=== PATIENT | male | born 1965 | race Caucasian/White ===

== ENCOUNTER 2018-04-01 05:47 | Inpatient (IN) | payer OTHER ==
[~2018-04-01] VITALS: Ht 177.8 cm; Wt 168.6 kg
[~2018-04-01 05:47] MED LIST: ASPI81EC PO; ATEN50 PO; ATOR80 PO; Byetta5 MCG/0.02 SQ; DOXY100T53 PO; EZET10 PO; LISI5 PO; METF500C PO; NIAC500ER PO; ONDA4ODT MM
[2018-04-01] MEDS ORDERED: CITA20 PO (06:00)
[2018-04-01] MEDS ORDERED: ATOR80 PO (06:00)
[2018-04-01] MEDS ORDERED: HYDHCL25 PO (06:00)
[2018-04-01] MEDS ORDERED: METF500C PO (06:01)
[2018-04-01] MEDS ORDERED: CHOL10002 PO (06:01)
[2018-04-01] MEDS ORDERED: GLIP5ER PO (06:01)
[2018-04-01] MEDS ORDERED: CARV3.125 PO (06:01)
[2018-04-01] MEDS ORDERED: GABA100 PO (06:01)
[2018-04-01 06:02] LABS: BASOPHILS PERCENT AUTO 1 % (0-2); EOSINOPHILS ABSOLUTE AUTO 0.22 K/mm3 (0.00-0.68); EOSINOPHILS PERCENT AUTO 3 % (0-6); Hematocrit 45.4 % (37.0-53.0); IMMATURE GRAN ABSOLUTE AUTO 0.04 K/mm3 (0.00-0.10); IMMATURE GRAN PERCENT AUTO 1 % (0-1); LYMPHOCYTES ABSOLUTE AUTO 2.45 K/mm3 (0.84-5.20); LYMPHOCYTES PERCENT AUTO 29 % (21-46); MONOCYTES ABSOLUTE AUTO 0.69 K/mm3 (0.16-1.47); MONOCYTES PERCENT AUTO 8 % (4-13); Mean Corpuscular HGB 29.2 pg (26.0-34.0); Mean Corpuscular Volume 88 fL (80-100); Mean Platelet Volume 11.2 fL (9.1-12.4); NEUTROPHILS ABSOLUTE AUTO 5.07 K/mm3 (1.96-9.15); NEUTROPHILS PERCENT AUTO 59 % (41-73); Platelet Count 245 K/mm3 (150-400); RDW Coefficient Variation 12.6 % (11.7-14.2); RDW Standard Deviation 40.2 fL (35.1-46.3); Red Blood Cell Count 5.14 M/mm3 (4.30-5.90); White Blood Cell Count 8.57 K/mm3 (4.00-11.30)
[2018-04-01] MEDS ORDERED: Amitriptyline H25 MG PO (06:02)
[2018-04-01] MEDS ORDERED: ALL DAY ALLERGY10 M1 PO (06:02)
[2018-04-01] MEDS ORDERED: Zestril30 MG PO (06:02)
[2018-04-01] MEDS ORDERED: LEVSOD100 PO (06:03)
[2018-04-01] MEDS ORDERED: LANS15EC PO (06:03)
[2018-04-01 06:25] LABS: Alanine Aminotransfer (ALT/SGP 80 U/L (12-78); Albumin, Blood 2.7 g/dL (3.4-5.0); Albumin/Globulin Ratio 0.7 (0.8-1.8); Alk Phos 117 U/L (50-136); Anion Gap 10 mmol/L (6-16); Aspartate Aminotrans (AST/SGOT 56 U/L (12-37); Bilirubin, Total 0.5 mg/dL (0.1-1.0); Blood Urea Nitrogen 14 mg/dL (8-24); Bun/Creatinine Ratio 19.3 (12.0-20.0); CO2, Blood 24 mmol/L (21-32); Calcium, Blood 8.5 mg/dL (8.5-10.1); Chloride, Blood 107 mmol/L (98-108); Creatinine, Blood 0.73 mg/dL (0.60-1.20); Glomerular Filtration Rate >60 (60-); Glucose, Blood 208 mg/dL (70-99); Potassium, Blood 4.1 mmol/L (3.5-5.5); Sodium, Blood 141 mmol/L (136-145); Total Protein, Blood 6.7 g/dL (6.4-8.2); Troponin I 0.143 ng/mL (0.000-0.040)
[2018-04-01 07:08] LABS: International Normalized Ratio 1.02; Prothrombin Time Results 10.5 Sec (9.7-11.5)
--- NOTE | 2018-04-01 10:30 | NUR ---
ASSUMED CARE PT TO UNIT FROM ED. ABLE TO STAND AND TRANSFER TO HOSP BED W/O ASSIST. PT BRIGHT AFFECT, ANSWERS QUESTIONS EASILY. A0X4. RESP EVEN UNLABORED W/ SATS >90% ON RA. REPORTS CP IS REDUCED 1/10. DENIES OTHER PAIN. DENIES N/V. REQUESTING FOOD. REPORTS HAS NOT EATEN ALL MORING AND IS CONCERNED ABOUT BLOOD SUGAR. HEPARIN DRIP INFUSING IN PIV TO LFA. RATE AND DOSE VERIFIED WITH HOMER BARAJAS. CALL LIGHT IN REACH. PT ORIENTED TO ROOM.
--- NOTE | 2018-04-01 11:00 | NUR ---
CARDIO CONSULT PROVIDER CALLED TO LET RN KNOW THERE IS NO STAFF FOR ART TEACHER OR ANY PROVIDER FOR INTERVENTION IF NEEDED. PROVIDER ATTEMPTED TO CALL HOSPITALIST TO INFORM THEM WAS UNABLE TO CONTACT JAMES.
--- NOTE | 2018-04-01 13:14 | NUR ---
Echocardiorgram completed.
--- NOTE | 2018-04-01 17:34 | NUR ---
SHIFT SUMMARY PT IS RESTING IN ROOM COMFORTABLY. AOX4. BRIGHT AFFECT. PT HAD MINOR CP UPON ARRIVAL TO UNIT AT 1/10. THAT PAIN HAS SINCE EASED AND IS NOW 0/10. ECHO WAS PERFORMED THIS AFTERNOON. TROP LEVEL CONTINUED TO ELEVATE. PT TO BE COBRA TRANSFERED TO [facility] SOON A ROOM BECOMES AVAILABLE. TRANSFER PACKET IS WHAT CHART AND IS MOSTLY COMPLETED. PT IS AWARE OF TRANSFER. PROVIDER EDUCATED PT ON CURRENT STATUS AND NEED FOR HIGHER LEVEL OF CARE. HEPARIN DRIP INFUSING THROUGH PIV. RESP IS EVEN AN UNLABORED. SKIN IS PWD. PT DENIES CP AT THIS TIME. REPORTS MILD PAYTON AND NAUSEA. MEDICATED PER EMAR. CALL LIGHT IS IN REACH. WILL CONTINUE TO MONITOR.
--- NOTE | 2018-04-02 06:09 | NUR ---
SHIFT SUMMARY PT ALERT AND ORIENTED. VS STABLE. PT DENIES CHEST PAIN OR DIZZINESS. BP STABLE. PT COMPLAINED OF HEADACHE THAT WAS RELIEVED WITH TYLENOL. PT AWAITING COBRA TRANSFER TO [facility]. HEPARIN GTT INFUSING PER ORDERS. WILL CONTINUE TO MONITOR AND REPORT TO ONCOMING RN. CALL LIGHT IN REACH.
[2018-04-02 06:30] LABS: BASOPHILS PERCENT AUTO 1 % (0-2); EOSINOPHILS ABSOLUTE AUTO 0.17 K/mm3 (0.00-0.68); EOSINOPHILS PERCENT AUTO 2 % (0-6); Hematocrit 47.6 % (37.0-53.0); Hemoglobin 15.7 g/dL (13.5-17.5); IMMATURE GRAN ABSOLUTE AUTO 0.03 K/mm3 (0.00-0.10); IMMATURE GRAN PERCENT AUTO 0 % (0-1); LYMPHOCYTES ABSOLUTE AUTO 2.48 K/mm3 (0.84-5.20); LYMPHOCYTES PERCENT AUTO 32 % (21-46); MONOCYTES ABSOLUTE AUTO 0.53 K/mm3 (0.16-1.47); MONOCYTES PERCENT AUTO 7 % (4-13); Mean Corpuscular HGB 29.6 pg (26.0-34.0); Mean Corpuscular Volume 90 fL (80-100); Mean Platelet Volume 11.1 fL (9.1-12.4); NEUTROPHILS ABSOLUTE AUTO 4.45 K/mm3 (1.96-9.15); NEUTROPHILS PERCENT AUTO 57 % (41-73); Platelet Count 235 K/mm3 (150-400); RDW Coefficient Variation 12.4 % (11.7-14.2); RDW Standard Deviation 40.7 fL (35.1-46.3); White Blood Cell Count 7.76 K/mm3 (4.00-11.30)
[2018-04-02 06:34] LABS: Alanine Aminotransfer (ALT/SGP 90 U/L (12-78); Albumin, Blood 2.7 g/dL (3.4-5.0); Albumin/Globulin Ratio 0.6 (0.8-1.8); Alk Phos 115 U/L (50-136); Anion Gap 7 mmol/L (6-16); Aspartate Aminotrans (AST/SGOT 81 U/L (12-37); Bilirubin, Total 0.7 mg/dL (0.1-1.0); Blood Urea Nitrogen 10 mg/dL (8-24); Bun/Creatinine Ratio 13.3 (12.0-20.0); CO2, Blood 27 mmol/L (21-32); Chloride, Blood 102 mmol/L (98-108); Creatinine, Blood 0.75 mg/dL (0.60-1.20); Globulin, Blood 4.2 g/dL (2.2-4.0); Glomerular Filtration Rate >60 (60-); Glucose, Blood 210 mg/dL (70-99); Magnesium, Blood 1.9 mg/dL (1.6-2.4); Potassium, Blood 4.3 mmol/L (3.5-5.5); Sodium, Blood 136 mmol/L (136-145); Total Protein, Blood 6.9 g/dL (6.4-8.2)
--- NOTE | 2018-04-02 13:00 | NUR ---
DOMENIC TXP REPORT CALLED TO ATA AT [facility]. PT UPDATED ON TRASNPORT. [facility] TO TAKE PT. ETA 1330 FOR TRANSPORT. LEGAL PROJECT MANAGER TO ASSIST WITH TRANSPORT/REPORT TO EMS. PACKET WITH LEGAL PROJECT MANAGER.
--- NOTE | 2018-04-02 13:47 | NUR ---
COBRA TRANSFER: Report was called to [facility] in [place]. [facility] here to trnasfer patient. Left via ambulance with heprin gtt running per orders. VSS at time of COBRA transfer. Pt denied CP, SOB or any other pain at time of transfer. Stable at time of discharge from facility.
== END 2018-04-02 13:35 | disposition short-term general hospital (02) | DRG 281 ==
LOC: ER 05:47 → PCU 08:06 → ER 09:47 → PCU 09:47
PROVIDERS: Emergency Medicine; ADMIT Internal Medicine
DX: I21.4 Non-ST elevation (NSTEMI) myocardial infarction (principal); Z68.43 Body mass index [BMI] 50.0-59.9, adult; I10 Essential (primary) hypertension; E11.9 Type 2 diabetes mellitus without complications; E78.5 Hyperlipidemia, unspecified; E66.01 Morbid (severe) obesity due to excess calories; I25.10 Atherosclerotic heart disease of native coronary artery without angina pectoris; Z95.1 Presence of aortocoronary bypass graft; I25.2 Old myocardial infarction; Z88.8 Allergy status to other drugs, medicaments and biological substances; Z91.013 Allergy to seafood; Z79.84 Long term (current) use of oral hypoglycemic drugs; Z79.899 Other long term (current) drug therapy
CPT/HCPCS: 36415; 71046; 80053; 82947; 83036; 83690; 83735; 83880; 84484; 85025; 85610; 85730; 93005; 93010; 93306; 96365; 96375; 99285-25; J1644; J2270; J2405

== ENCOUNTER 2019-05-01 13:45 | Emergency (ER) | payer OTHER ==
[~2019-05-01] VITALS: Ht 180.3 cm; Wt 127.0 kg
[~2019-05-01 13:45] MED LIST changes: +ALL DAY ALLERGY10 M1 PO; +Amitriptyline H25 MG PO; +CARV3.125 PO; +CHOL10002 PO; +CITA20 PO; +GABA100 PO; +GLIP5ER PO; +HYDHCL25 PO; +LANS15EC PO; +LEVSOD100 PO; +Zestril30 MG PO
[2019-05-01 14:39] LABS: BASOPHILS ABSOLUTE AUTO 0.08 K/mm3 (0.00-0.23); BASOPHILS PERCENT AUTO 1 % (0-2); EOSINOPHILS ABSOLUTE AUTO 0.17 K/mm3 (0.00-0.68); EOSINOPHILS PERCENT AUTO 2 % (0-6); Hematocrit 51.6 % (37.0-53.0); Hemoglobin 17.5 g/dL (13.5-17.5); IMMATURE GRAN ABSOLUTE AUTO 0.03 K/mm3 (0.00-0.10); IMMATURE GRAN PERCENT AUTO 0 % (0-1); LYMPHOCYTES ABSOLUTE AUTO 1.85 K/mm3 (0.84-5.20); LYMPHOCYTES PERCENT AUTO 21 % (21-46); MONOCYTES ABSOLUTE AUTO 0.51 K/mm3 (0.16-1.47); MONOCYTES PERCENT AUTO 6 % (4-13); Mean Corpuscular HGB Conc 33.9 g/dL (31.5-36.5); Mean Corpuscular Volume 91 fL (80-100); Mean Platelet Volume 11.8 fL (9.1-12.4); NEUTROPHILS PERCENT AUTO 70 % (41-73); Platelet Count 208 K/mm3 (150-400); RDW Coefficient Variation 13.2 % (11.7-14.2); RDW Standard Deviation 43.9 fL (35.1-46.3); Red Blood Cell Count 5.65 M/mm3 (4.30-5.90); White Blood Cell Count 8.64 K/mm3 (4.00-11.30)
[2019-05-01 14:52] LABS: Alanine Aminotransfer (ALT/SGP 32 U/L (12-78); Albumin, Blood 2.8 g/dL (3.4-5.0); Albumin/Globulin Ratio 0.7 (0.8-1.8); Alk Phos 94 U/L (50-136); Anion Gap 10 mmol/L (6-16); Aspartate Aminotrans (AST/SGOT 28 U/L (12-37); Bilirubin, Total 0.8 mg/dL (0.1-1.0); Blood Urea Nitrogen 10 mg/dL (8-24); CO2, Blood 20 mmol/L (21-32); Calcium, Blood 8.9 mg/dL (8.5-10.1); Chloride, Blood 110 mmol/L (98-108); Creatinine, Blood 0.71 mg/dL (0.60-1.20); Globulin, Blood 3.8 g/dL (2.2-4.0); Glomerular Filtration Rate >60 (60-); Glucose, Blood 117 mg/dL (70-99); Potassium, Blood 4.1 mmol/L (3.5-5.5); Sodium, Blood 140 mmol/L (136-145); Total Protein, Blood 6.6 g/dL (6.4-8.2)
[2019-05-01 15:05] LABS: Source, Urine Clean Catch
[2019-05-01 15:15] LABS: Bilirubin, Urine Neg (Neg); Blood, Urine Neg (Neg); Glucose Qualitative, Urine Neg (Neg); Ketones, Urine 1+ (Neg); Leukocyte Esterase, Urine 1+ (Neg); Nitrite, Urine Neg (Neg); Protein, Urine 2+ (Neg); Specific Gravity, Urine 1.015 (1.003-1.022); Urobilinogen, Urine 1+ (Normal)
[2019-05-01 15:36] LABS: Appearance, Urine Clear (Clear); Color, Urine Yellow (P-Yellow)
[2019-05-01 15:37] LABS: Spermatozoa Mod /hpf
[2019-05-01 15:38] LABS: Bacteria Few /hpf; Red Blood Cells, Urine 0-2 /hpf (0-2); Squamous Epithelial Cells Few /hpf (Few)
[2019-05-01 15:45] LABS: U Amphetamine Screen Not Detected; U Barbituate Screen Not Detected; U Benzodiazapine Screen Not Detected; U Buprenorphine Screen Not Detected; U Cannabinoids Screen DETECTED; U Cocaine Screen Not Detected; U Methadone Screen Not Detected; U Methamphetamine Screen Not Detected; U Opiates Screen Not Detected; U Oxycodone Screen Not Detected; U Phencyclidine Screen Not Detected; U Propoxyphene Screen Not Detected
[2019-05-01] MEDS ORDERED: LEVE500 PO (17:18)
== END 2019-05-01 18:10 | disposition home or self-care (01) ==
LOC: ER 13:45
PROVIDERS: Emergency Medicine
DX: R56.9 Unspecified convulsions (principal); G93.89 Other specified disorders of brain; I25.2 Old myocardial infarction; E11.9 Type 2 diabetes mellitus without complications; F32.9 Major depressive disorder, single episode, unspecified; F41.9 Anxiety disorder, unspecified; F17.210 Nicotine dependence, cigarettes, uncomplicated; Z88.1 Allergy status to other antibiotic agents; Z91.013 Allergy to seafood; Z79.899 Other long term (current) drug therapy; Z79.84 Long term (current) use of oral hypoglycemic drugs
CPT/HCPCS: 70450; 80053; 81001; 83735; 85025; 87086; 93005; 93010; 96365; 99285-25; J1953

== ENCOUNTER 2019-09-13 19:45 | Emergency (ER) | payer OTHER ==
[~2019-09-13] VITALS: Ht 177.8 cm; Wt 124.7 kg
[~2019-09-13 19:45] MED LIST changes: -ALL DAY ALLERGY10 M1 PO; +BASAGLAR K100 UNIT/2 SC; +CARV25 PO; -CARV3.125 PO; -CHOL10002 PO; +LEVE500 PO; +Metformin HCl1000 MG PO; +Neurontin 300300 MG PO; +PANTOPRAZOLE SO40 M2 PO; +PLAVIX75 MG PO; +VITAMIN D3100 MCG PO; +ZESTRIL40 M2 PO; -Zestril30 MG PO; +Zyrtec10 MG PO
== END 2019-09-13 21:15 | disposition home or self-care (01) ==
LOC: ER 19:45
DX: G40.901 Epilepsy, unspecified, not intractable, with status epilepticus (principal); I25.2 Old myocardial infarction; E11.9 Type 2 diabetes mellitus without complications; I10 Essential (primary) hypertension; K21.9 Gastro-esophageal reflux disease without esophagitis; F41.9 Anxiety disorder, unspecified; F32.9 Major depressive disorder, single episode, unspecified; F17.210 Nicotine dependence, cigarettes, uncomplicated; Z88.1 Allergy status to other antibiotic agents; Z91.013 Allergy to seafood; Z79.899 Other long term (current) drug therapy; Z79.4 Long term (current) use of insulin; Z79.02 Long term (current) use of antithrombotics/antiplatelets
CPT/HCPCS: 82947; 99284